=== PATIENT | male | born 1995 | race Caucasian/White ===

== ENCOUNTER 2018-05-04 12:35 | Emergency (ER) | payer BC, OTHER ==
--- NOTE | 2018-05-04 13:11 | ER ---
Nurse's Notes [facility] Name: Claude Morel Age: 23 yrs Sex: Male : 1995 Arrival Date: 05/04/2018 Time: 12:39 Bed 19 Private MD: Fredo Díaz R Diagnosis: Headache Presentation: 05/04 12:41 Presenting complaint: Patient states: "I've been seeing double vision, dizzy and aj1 nauseous. Its been going on for a couple months, but its worse today" [facility] because it has been intermittent. Reports headache, denies fever, denies vomiting. Transition of care: patient was not received from another setting of care. Onset of symptoms was February 2018. Risk Assessment: Do you want to hurt yourself or someone else? Patient reports no desire to harm self or others. Initial Sepsis Screen: Does the patient meet any 2 criteria? No. Patient's initial sepsis screen is negative. Does the patient have a suspected source of infection? No. Patient's initial sepsis screen is negative. Care prior to arrival: None. 12:41 Method Of Arrival: Ambulatory aj1 12:41 Acuity: VIRA 3 aj1 Triage Assessment: 12:43 General: Appears in no apparent distress. comfortable, Behavior is calm, cooperative, aj1 appropriate for age. Pain: Complains of pain in forehead, left parietal area and right parietal area Pain currently is 2 out of 10 on a pain scale. at worst was 10 out of 10 on a pain scale. Neuro: Level of Consciousness is awake, alert, obeys commands, Oriented to person, place, time, situation, Gait is steady, Speech is normal, Facial symmetry appears normal, Reports blurred vision diplopia, dizziness, headache. Cardiovascular: Patient's skin is warm and dry. Respiratory: Airway is patent Respiratory effort is even, unlabored, Respiratory pattern is regular, symmetrical. Historical: - Allergies: 12:43 No Known Allergies; aj1 - Home Meds: 12:43 None [Active]; aj1 - PMHx: 12:43 None; aj1 - PSHx: 12:43 ankle surgery; aj1 - Immunization history:: Flu vaccine is not up to date. - Social history:: Smoking status: Patient/guardian denies using tobacco. - Ebola Screening: : Patient denies travel to an Ebola-affected area in the 21 days before illness onset. Screenin:29 Abuse screen: Denies threats or abuse. Nutritional screening: No deficits noted. em Tuberculosis screening: No symptoms or risk factors identified. Fall Risk None identified. Assessment: 13:02 General: Appears in no apparent distress. comfortable, Behavior is calm, cooperative. em Pain: Complains of pain in left temporal area and left frontal area. Neuro: Level of Consciousness is awake, alert, obeys commands, Oriented to person, place, time, situation, Moves all extremities. Speech is normal, Reports diplopia, dizziness, headache. Cardiovascular: Patient's skin is warm and dry. Respiratory: Airway is patent Respiratory effort is even, unlabored, Respiratory pattern is regular, symmetrical. GI: Reports nausea, Patient currently denies vomiting. Derm: Skin is intact, Skin is pink, warm \\T\\ dry. Musculoskeletal: Range of motion: intact in all extremities. 13:05 Reassessment: Patient appears in no apparent distress at this time. I agree with above iw assessment by Chang Luo LVN. Vital Signs: 12:43 BP 130 / 61; Pulse 65; Resp 18; Temp 98.1; Pulse Ox 100% on R/A; Weight 76.66 kg (R); aj1 Height 5 ft. 9 in. (175.26 cm) (R); Pain 2/10; 13:14 BP 122 / 73 Sitting; Pulse 52; Resp 14; Pulse Ox 100% on R/A; mh5 13:16 BP 129 / 83 Standing; Pulse 54; Resp 15; Pulse Ox 99% on R/A; mh5 13:18 BP 121 / 55 Supine; Pulse 55; Resp 14; Pulse Ox 100% on R/A; mh5 12:43 Body Mass Index 24.96 (76.66 kg, 175.26 cm) aj1 ED Course: 12:39 Patient arrived in ED. mr 12:39 Fredo Díaz MD is Private Physician. mr 12:43 Triage completed. aj1 12:43 Arm band placed on Patient placed in an exam room. aj1 12:46 Veto Shirley PA is PHCP. cp 12:46 Juan Bonilla MD is Attending Physician. cp 12:51 Chang Luo LVN is Primary Nurse. em 13:00 Patient has correct armband on for positive identification. Call light in reach. Adult em w/ patient. 13:00 No provider procedures requiring assistance completed. Patient did not have IV access em during this emergency room visit. 13:10 Fredo Díaz MD is Referral Physician. cp Administered Medications: No medications were administered Outcome: 13:00 Discharged to home ambulatory. em 13:00 Condition: good 13:00 Discharge instructions given to patient, Instructed on discharge instructions, follow up and referral plans. Demonstrated understanding of instructions, follow-up care. 13:10 Discharge ordered by . cp 13:32 Patient left the ED. em Signatures: Cleo Boo, RN RN aj1 Marlene Santiago mr Chang Luo, THINNER SPRAYER THINNER SPRAYER em Tere Ann RN RN iw Veto Shirley, PA PA cp Marlene Esquivel mh5
--- NOTE | 2018-05-04 13:11 | EDPHYS ---
Physician Documentation [facility] Name: Claude Morel Age: 23 yrs Sex: Male : 1995 Arrival Date: 05/04/2018 Time: 12:39 Bed 19 Private MD: Fredo Díaz R ED Physician Juan Bonilla HPI: 05/04 12:58 This 23 yrs old Male presents to ER via Ambulatory with complaints of cp headache, dizziness, blurred vision. 12:59 The patient complains of pain to the top of head, forehead, left frontal area, left cp temporal area and right temporal area. The patient describes the headache as aching. Onset: The symptoms/episode began/occurred intermittent for months. Associated signs and symptoms: Pertinent positives: dizziness, nausea, blurred vision. Severity of symptoms: in the emergency department the pain has improved, markedly. Patient reports he has not seen PCP for headaches and decided to come to ED for evaluation after having headache earlier today while in [place]. Patient reports headache is now improved w/o taking any medications. Usually takes OTC tylenol or Naproxen that relieves headaches. Historical: - Allergies: 12:43 No Known Allergies; aj1 - Home Meds: 12:43 None [Active]; aj1 - PMHx: 12:43 None; aj1 - PSHx: 12:43 ankle surgery; aj1 - Immunization history:: Flu vaccine is not up to date. - Social history:: Smoking status: Patient/guardian denies using tobacco. - Ebola Screening: : Patient denies travel to an Ebola-affected area in the 21 days before illness onset. ROS: 13:02 Constitutional: Negative for body aches, chills, fever, poor PO intake. cp 13:02 Eyes: Positive for blurry vision, improved, Negative for pain, redness, vision loss. 13:02 ENT: Negative for drainage from ear(s), ear pain, sore throat, difficulty swallowing, difficulty handling secretions. 13:02 Cardiovascular: Negative for chest pain, edema, palpitations. 13:02 Respiratory: Negative for cough, shortness of breath, wheezing. 13:02 Abdomen/GI: Negative for abdominal pain, vomiting, diarrhea, constipation, anorexia. 13:02 Back: Negative for pain at rest, pain with movement, radiated pain. 13:02 : Negative for urinary symptoms. 13:02 Neuro: Positive for dizziness, headache, improved, Negative for altered mental status, gait disturbance, speech changes, syncope, near syncope, weakness. 13:02 All other systems are negative. Exam: 13:04 Head/Face: Normocephalic, atraumatic. cp 13:04 Constitutional: The patient appears in no acute distress, alert, awake, non-toxic, well developed, well nourished. 13:04 Eyes: Periorbital structures: appear normal, Pupils: equal, round, and reactive to light and accomodation, Extraocular movements: intact throughout, Conjunctiva: normal, no exudate, no injection, Lids and lashes: appear normal, bilaterally. 13:04 ENT: External ear(s): are unremarkable, Ear canal(s): are normal, clear, TM's: bulging, is not appreciated, bilaterally, dullness, bilaterally, erythema, is not appreciated, bilaterally, Nose: is normal, Mouth: is normal, Posterior pharynx: is normal, airway is patent, no erythema, no exudate. 13:04 Neck: ROM/movement: is normal, is supple, without pain, no range of motions limitations, no meningismus, no nuchal rigidity, Lymph nodes: no appreciated lymphadenopathy. 13:04 Chest/axilla: Inspection: normal, Palpation: is normal, no crepitus, no tenderness. 13:04 Cardiovascular: Rate: normal, Rhythm: regular. 13:04 Respiratory: the patient does not display signs of respiratory distress, Respirations: normal, no use of accessory muscles, no retractions, no splinting, no tachypnea, labored breathing, is not present, Breath sounds: are clear throughout, no decreased breath sounds, no stridor, no wheezing. 13:04 Abdomen/GI: Inspection: abdomen appears normal, Palpation: abdomen is soft and non-tender, in all quadrants. 13:04 Skin: cellulitis, is not appreciated, no rash present. Vital Signs: 12:43 BP 130 / 61; Pulse 65; Resp 18; Temp 98.1; Pulse Ox 100% on R/A; Weight 76.66 kg (R); aj1 Height 5 ft. 9 in. (175.26 cm) (R); Pain 2/10; 13:14 BP 122 / 73 Sitting; Pulse 52; Resp 14; Pulse Ox 100% on R/A; mh5 13:16 BP 129 / 83 Standing; Pulse 54; Resp 15; Pulse Ox 99% on R/A; mh5 13:18 BP 121 / 55 Supine; Pulse 55; Resp 14; Pulse Ox 100% on R/A; mh5 12:43 Body Mass Index 24.96 (76.66 kg, 175.26 cm) aj1 MDM: 12:47 Patient medically screened. 13:00 Differential diagnosis: migraine, sinusitis, tension headache. 13:08 Data reviewed: vital signs, nurses notes. 13:08 Counseling: I had a detailed discussion with the patient and/or guardian regarding: the cp historical points, exam findings, and any diagnostic results supporting the discharge/admit diagnosis, the need for outpatient follow up, a family practitioner, to return to the emergency department if symptoms worsen or persist or if there are any questions or concerns that arise at home. 13:08 ED course: VSS. With patient reporting improvement in symptoms since onset and that cp symptoms have been occurring for months, will discharge to home with recommendation for f/u with PCP. 05/04 12:57 Order name: Orthostatics; Complete Time: 13:29 cp Administered Medications: No medications were administered Disposition: 14:00 Chart complete. 05/05 10:30 Co-signature as Attending Physician, Juan Bonilla MD. Disposition: 05/04/18 13:10 Discharged to Home. Impression: Headache. - Condition is Stable. - Discharge Instructions: General Headache Without Cause. - Prescriptions for Naprosyn 500 mg Oral Tablet - take 1 tablet by ORAL route 2 times per day take with food; 20 tablet. - Medication Reconciliation Form, Thank You Letter, Antibiotic Education, Prescription Opioid Use form. - Follow up: Fredo Díaz MD; When: 1 - 2 days; Reason: Recheck today's complaints. - Problem is an ongoing problem. - Symptoms are unchanged. Signatures: Cleo Boo RN RN aj1 Chang Luo LVN [employer]PA[employer] em Veto Shirley PA PA cp Starr, Gregory, MD MD gs Corrections: (The following items were deleted from the chart) 05/04 13:32 13:10 05/04/2018 13:10 Discharged to Home. Impression: Headache. Condition is Stable. em Forms are Medication Reconciliation Form, Thank You Letter, Antibiotic Education, Prescription Opioid Use. Follow up: Fredo Díaz; When: 1 - 2 days; Reason: Recheck today's complaints. Problem is an ongoing problem. Symptoms are unchanged. cp
== END 2018-05-04 13:32 | disposition home or self-care (01) ==
LOC: ER 12:35
DX: R51 Headache (principal)
CPT/HCPCS: 99281

== ENCOUNTER 2021-04-20 21:51 | Emergency (ER) | payer BC ==
--- OUTSIDE RECORDS SUMMARY | 2021-04-20 21:53 | XMS REPORT | Continuity of Care Document ---
:1995 Author Organization [facility] t Address [address] [place] [address] Care Team Providers Name Role Phone Unavailable Unavailable Unavailable Problems This patient has no known problems. Allergies, Adverse Reactions, Alerts This patient has no known allergies or adverse reactions. Medications This patient has no known medications. Procedures This patient has no known procedures. Results This patient has no known results.
[2021-04-20] MEDS ORDERED: METOCLOPRAMIDE 10 MG/2mL INJ ONE (23:34)
[2021-04-20] MEDS ORDERED: DIPHENHYDRAMINE 50 MG/ML VIAL ONE (23:34)
--- NOTE | 2021-04-21 00:03 | ER ---
Nurse's Notes [facility] Name: Claude Morel Age: 26 yrs Sex: Male : 1995 Arrival Date: 04/20/2021 Time: 21:53 Bed 13 Private MD: Fredo Díaz R Diagnosis: Migraine without aura, intractable Presentation: 04/20 22:12 Chief complaint: Patient states: headache since Saturday, vomited once on Saturday, denies ca1 fever, hx of migraines. Coronavirus screen: Client denies travel out of the [place] in the last 14 days. Ebola Screen: Patient negative for fever greater than or equal to 101.5 degrees Fahrenheit, and additional compatible Ebola Virus Disease symptoms Patient denies exposure to infectious person. Patient denies travel to an Ebola-affected area in the 21 days before illness onset. No symptoms or risks identified at this time. Initial Sepsis Screen: Does the patient meet any 2 criteria? No. Patient's initial sepsis screen is negative. Does the patient have a suspected source of infection? No. Patient's initial sepsis screen is negative. Risk Assessment: Do you want to hurt yourself or someone else? Patient reports no desire to harm self or others. Onset of symptoms was April 20, 2021. 22:12 Method Of Arrival: Ambulatory ca1 22:12 Acuity: VIRA 3 ca1 Historical: - Allergies: 22:13 No Known Allergies; ca1 - PMHx: 22:13 Migraines; ca1 - PSHx: 22:13 None; ca1 - Immunization history:: Adult Immunizations up to date. - Social history:: Smoking status: Patient denies any tobacco usage or history of. Screenin:30 Abuse screen: Denies threats or abuse. Nutritional screening: No deficits noted. jb4 Tuberculosis screening: No symptoms or risk factors identified. Fall Risk None identified. Assessment: 22:30 General: Appears in no apparent distress. uncomfortable, Behavior is calm, cooperative, jb4 appropriate for age. Pain: Complains of pain in headache Pain does not radiate. Pain currently is 8 out of 10 on a pain scale. Neuro: Level of Consciousness is awake, alert, obeys commands, Oriented to person, place, time, situation, Reports headache photophobia. Cardiovascular: Patient's skin is warm and dry. Respiratory: Airway is patent Respiratory effort is even, unlabored, Respiratory pattern is regular, symmetrical. GI: No signs and/or symptoms were reported involving the gastrointestinal system. : No signs and/or symptoms were reported regarding the genitourinary system. EENT: No signs and/or symptoms were reported regarding the EENT system. Derm: Skin is intact, Skin is pink, warm \T\ dry. Musculoskeletal: Circulation, motion, and sensation intact. Range of motion: intact in all extremities. 23:30 Reassessment: Patient appears in no apparent distress at this time. Patient and/or jb4 family updated on plan of care and expected duration. Pain level reassessed. Patient is alert, oriented x 3, equal unlabored respirations, skin warm/dry/pink. 04/21 00:12 Reassessment: Patient appears in no apparent distress at this time. Patient and/or jb4 family updated on plan of care and expected duration. Pain level reassessed. Patient is alert, oriented x 3, equal unlabored respirations, skin warm/dry/pink. Vital Signs: 04/20 22:12 BP 145 / 88; Pulse 82; Resp 18; Temp 98.1; Pulse Ox 99% on R/A; Weight 72.57 kg; Height ca1 5 ft. 9 in. (175.26 cm); Pain 8/10; 04/21 00:00 BP 126 / 83; Pulse 57; Resp 16; Pulse Ox 98% on R/A; jb4 04/20 22:12 Body Mass Index 23.63 (72.57 kg, 175.26 cm) ca1 ED Course: 04/20 21:53 Patient arrived in ED. es 21:54 Fredo Díaz MD is Private Physician. es 22:13 Triage completed. ca1 22:13 Arm band placed on. ca1 22:18 Edgard Dalal PA is PHCP. jr8 22:18 Veto Donahue MD is Attending Physician. jr8 22:30 Patient has correct armband on for positive identification. Bed in low position. Call jb4 light in reach. Side rails up X 1. 23:25 CT Head Brain wo Cont In Process Unspecified. EDMS 23:30 Inserted saline lock: 20 gauge in right antecubital area, using aseptic technique. jb4 Blood collected. 23:35 Angelo Kiser, RN is Primary Nurse. jb4 04/21 00:02 Fredo Díaz MD is Referral Physician. jr8 00:02 Aguilar Leung MD is Referral Physician. jr8 Administered Medications: 04/20 23:30 Drug: Benadryl (diphenhydrAMINE) 25 mg Route: IVP; Site: right antecubital; jb4 04/21 00:13 Follow up: Response: No adverse reaction; Marked relief of symptoms jb4 04/20 23:34 Drug: Reglan (metoCLOPramide) 10 mg Route: IVP; Site: right antecubital; jb4 04/21 00:13 Follow up: Response: No adverse reaction; Marked relief of symptoms jb4 Outcome: 00:02 Discharge ordered by . jr8 00:13 Patient left the ED. jb4 Signatures: Dispatcher [employer] EDSugey Riddle Josh, PA PA jr8 Angelo Kiser RN RN jb4 Faiza Fabian RN RN ca1 Corrections: (The following items were deleted from the chart) 04/20 23:37 22:30 Inserted saline lock: 20 gauge in right antecubital area, using aseptic jb4 technique. Blood collected. jb4
--- NOTE | 2021-04-21 00:03 | EDPHYS ---
Physician Documentation [facility] Name: Claude Morel Age: 26 yrs Sex: Male : 1995 Arrival Date: 04/20/2021 Time: 21:53 Bed 13 Private MD: Fredo Díaz R ED Physician Veto Donahue HPI: 04/20 23:07 This 26 yrs old Male presents to ER via Ambulatory with complaints of jr8 Headache > 24hrs Old. 23:07 The patient complains of pain to the left base of the skull and right base of the jr8 skull. The patient describes the headache as throbbing. Onset: The symptoms/episode began/occurred gradually, 3 day(s) ago. Associated signs and symptoms: Pertinent positives: Photophobia. Severity of symptoms: At its worst the pain was moderate, in the emergency department the pain is unchanged. Headache History: The patient has had previous headaches and this one is similar to previous episodes. The symptoms are alleviated by nothing. the symptoms are aggravated by lights, movement, noise. The patient has experienced similar episodes in the past, a few times, but today's symptoms are worse, lasting longer. The patient has not recently seen a physician. Patient stated that he has been having daily headaches for about a year. Stated that he normally takes OTC medicines but for the last three days has tried this without relief . Historical: - Allergies: 22:13 No Known Allergies; ca1 - PMHx: 22:13 Migraines; ca1 - PSHx: 22:13 None; ca1 - Immunization history:: Adult Immunizations up to date. - Social history:: Smoking status: Patient denies any tobacco usage or history of. ROS: 23:07 Eyes: Negative for injury, pain, redness, and discharge, ENT: Negative for injury, jr8 pain, and discharge, Neck: Negative for injury, pain, and swelling, Cardiovascular: Negative for chest pain, palpitations, and edema, Respiratory: Negative for shortness of breath, cough, wheezing, and pleuritic chest pain, Abdomen/GI: Negative for abdominal pain, nausea, vomiting, diarrhea, and constipation, Back: Negative for injury and pain, MS/Extremity: Negative for injury and deformity, Skin: Negative for injury, rash, and discoloration. 23:07 Neuro: Positive for headache. Exam: 23:07 Constitutional: This is a well developed, well nourished patient who is awake, alert, jr8 and in no acute distress. Eyes: Pupils equal round and reactive to light, extra-ocular motions intact. Lids and lashes normal. Conjunctiva and sclera are non-icteric and not injected. Cornea within normal limits. Periorbital areas with no swelling, redness, or edema. ENT: Nares patent. No nasal discharge, no septal abnormalities noted. Tympanic membranes are normal and external auditory canals are clear. Oropharynx with no redness, swelling, or masses, exudates, or evidence of obstruction, uvula midline. Mucous membranes moist. Neck: Trachea midline, no thyromegaly or masses palpated, and no cervical lymphadenopathy. Supple, full range of motion without nuchal rigidity, or vertebral point tenderness. No Meningismus. Cardiovascular: Regular rate and rhythm with a normal S1 and S2. No gallops, murmurs, or rubs. Normal PMI, no JVD. No pulse deficits. Respiratory: Lungs have equal breath sounds bilaterally, clear to auscultation and percussion. No rales, rhonchi or wheezes noted. No increased work of breathing, no retractions or nasal flaring. Abdomen/GI: Soft, non-tender, with normal bowel sounds. No distension or tympany. No guarding or rebound. No evidence of tenderness throughout. Back: No spinal tenderness. No costovertebral tenderness. Full range of motion. Skin: Warm, dry with normal turgor. Normal color with no rashes, no lesions, and no evidence of cellulitis. MS/ Extremity: Pulses equal, no cyanosis. Neurovascular intact. Full, normal range of motion. Neuro: Awake and alert, GCS 15, oriented to person, place, time, and situation. Cranial nerves II-XII grossly intact. Motor strength 5/5 in all extremities. Sensory grossly intact. Cerebellar exam normal. Normal gait. Vital Signs: 22:12 BP 145 / 88; Pulse 82; Resp 18; Temp 98.1; Pulse Ox 99% on R/A; Weight 72.57 kg; Height ca1 5 ft. 9 in. (175.26 cm); Pain 8/10; 04/21 00:00 BP 126 / 83; Pulse 57; Resp 16; Pulse Ox 98% on R/A; jb4 04/20 22:12 Body Mass Index 23.63 (72.57 kg, 175.26 cm) ca1 MDM: 04/20 22:18 Patient medically screened. jr8 04/21 00:01 Data reviewed: vital signs, nurses notes, radiologic studies, CT scan. Data jr8 interpreted: Pulse oximetry: on room air is 99 %. Interpretation: normal. Counseling: I had a detailed discussion with the patient and/or guardian regarding: the historical points, exam findings, and any diagnostic results supporting the discharge/admit diagnosis, radiology results, the need for outpatient follow up, a family practitioner, a neurologist, to return to the emergency department if symptoms worsen or persist or if there are any questions or concerns that arise at home. Response to treatment: the patient's symptoms have markedly improved after treatment. 04/20 22:59 Order name: CT Head Brain wo Cont jr8 04/20 22:59 Order name: IV; Complete Time: 23:34 [facility] Administered Medications: 04/20 23:30 Drug: Benadryl (diphenhydrAMINE) 25 mg Route: IVP; Site: right antecubital; [facility] 04/21 00:13 Follow up: Response: No adverse reaction; Marked relief of symptoms [facility] 04/20 23:34 Drug: Reglan (metoCLOPramide) 10 mg Route: IVP; Site: right antecubital; [facility] 04/21 00:13 Follow up: Response: No adverse reaction; Marked relief of symptoms [facility] Disposition: 07:13 Co-signature as Attending Physician, Veto Donahue MD I agree with the assessment and terell plan of care. Disposition: 04/21/21 00:02 Discharged to Home. Impression: Migraine without aura, intractable. - Condition is Stable. - Discharge Instructions: Migraine Headache. - Medication Reconciliation Form, Thank You Letter, Antibiotic Education, Prescription Opioid Use form. - Follow up: Fredo Díaz MD; When: 2 - 3 days; Reason: Recheck today's complaints, Continuance of care, Re-evaluation by your physician. Follow up: Aguilar Leung MD; When: 1 week; Reason: Recheck today's complaints, Continuance of care, Re-evaluation by your physician. - Problem is new. - Symptoms have improved. Signatures: Dispatcher [employer] Veot Motta MD MD cha Roszak, Josh, PA PA jr8 Angelo Kiser, RN RN jb4 Faiza aFbian RN RN ca1 Corrections: (The following items were deleted from the chart) 00:13 00:02 04/21/2021 00:02 Discharged to Home. Impression: Migraine without aura, jb4 intractable. Condition is Stable. Forms are Medication Reconciliation Form, Thank You Letter, Antibiotic Education, Prescription Opioid Use. Follow up: Fredo Díaz; When: 2 - 3 days; Reason: Recheck today's complaints, Continuance of care, Re-evaluation by your physician. Follow up: Aguilar Leung; When: 1 week; Reason: Recheck today's complaints, Continuance of care, Re-evaluation by your physician. Problem is new. Symptoms have improved. jr8
[2021-04-21 01:19] VITALS: TEMP 98.1
[2021-04-21 01:28] VITALS: BP 126/83; O2SAT 98
--- NOTE | 2021-04-21 12:05 | RAD REPORT ---
EXAM DESCRIPTION: CT - Head Brain Wo Cont - 04/21/2021 6:21 am CLINICAL HISTORY: 26 years, Male, HEADACHE COMPARISON: None. FINDINGS: Multiple transaxial tomograms of the brain were obtained from the base of the skull to the vertex without contrast. 2-D multiplanar reformats and the coronal and sagittal plane were performed and reviewed. This exam was performed according to our departmental dose-optimization protocol, which includes auto mated exposure control, adjustment of the mA and/or kV according to patient size and/or use of iterat asher reconstruction technique. Brain parenchyma as well as the sabillon and white matter differentiation demonstrate to be unremarkable. There is no midline shift and/or mass effect. There is no evidence for acute hemorrhage. Lateral v entricles and cisterns displace normal appearance. No intra or extra axial fluid collections were s een. The calvarium is intact with no evidence for fracture. The visualized portions of the paranasal sinuses and orbits demonstrate to be clear. IMPRESSION: No evidence for acute hemorrhage. Unremarkable CT scan of the head without contrast. Electronically signed by: Edgardo Shi MD 04/20/2021 11:35 PM CDT Due to temporary technical issues with the PACS/Fluency reporting system, reports are being signed by the in house radiologist without review as a courtesy to ensure prompt reporting. The interpreting r adiologist is fully responsible for the content of the report.
== END 2021-04-21 00:13 | disposition home or self-care (01) ==
LOC: ER 21:51
DX: G43.019 Migraine without aura, intractable, without status migrainosus (principal)
CPT/HCPCS: 70450; J2765; J1200; 96374; 96375; 99284